=== PATIENT | male | born 1975 | race Caucasian/White ===

== ENCOUNTER 2022-01-22 14:29 | Emergency (ER) | payer MEDICARE, MEDICAID ==
[2022-01-22] MEDS ORDERED: Dexamethasone 4 MG Tab PO ONE (15:29)
[2022-01-22] MEDS ORDERED: Azithromycin 500 MG Tab PO ONE (15:29)
[2022-01-22 15:35] LABS: ESTIMATED GFR 75 mL/min (>60)
[2022-01-22] MEDS ORDERED: Iopamidol 755 Mg/ML 100 ML Bottle IV ONE (17:41)
[2022-01-22] MEDS ORDERED: Piperacillin/Tazobactam 4.5 GM in Sodium Chloride 0.9% 100 ML IV STA (19:04)
[2022-01-22] MEDS ORDERED: metroNIDAZOLE/Normal Saline 500 MG in Premix Bag 1 BAG IV ONE (19:09)
== END 2022-01-22 20:13 | disposition home or self-care (01) ==
LOC: FB.ED 14:29
DX: U07.1 COVID-19 (principal); K57.32 Diverticulitis of large intestine without perforation or abscess without bleeding; R74.01 Elevation of levels of liver transaminase levels; D69.6 Thrombocytopenia, unspecified; Z88.1 Allergy status to other antibiotic agents; Z79.899 Other long term (current) drug therapy
CPT/HCPCS: 36415; 71046; 74177; 80053; 84484; 85025; 85379; 86140; 96365; 99284; A9270; J2543; J8540; Q9967

== ENCOUNTER 2023-04-12 22:47 | Emergency (ER) | payer MEDICARE, MEDICAID ==
[2023-04-12 23:31] VITALS: BP 127/73; PULSE 76
== END 2023-04-12 23:12 | disposition home or self-care (01) ==
LOC: FB.ED 22:47
DX: U07.1 COVID-19 (principal); J44.9 Chronic obstructive pulmonary disease, unspecified; I10 Essential (primary) hypertension; Z88.1 Allergy status to other antibiotic agents
CPT/HCPCS: 99283

== ENCOUNTER 2023-04-27 07:28 | Day surgery (SDC) | payer MEDICARE, MEDICAID ==
[2023-04-27] MEDS ORDERED: Lidocaine 2% 5 ML SDV IV ONE (07:29)
[2023-04-27] MEDS ORDERED: Propofol 200 MG/20 ML SDV IV ONE (07:29)
[2023-04-27] MEDS ORDERED: Sodium Chloride 0.9% 10 ML Syringe FLUSH PRN (07:30)
[2023-04-27] MEDS ORDERED: Lactated Ringers 1,000 ML IV SCH (07:30)
[2023-04-27] MEDS ORDERED: Simethicone Drops 40 MG/0.6 ML 30 ML Bottle PO ONE (08:42)
== END 2023-04-27 10:25 | disposition home or self-care (01) ==
LOC: FB.SDS 07:28
PROVIDERS: ATTEND Surgery
DX: D12.6 Benign neoplasm of colon, unspecified (principal); Q43.8 Other specified congenital malformations of intestine; J44.9 Chronic obstructive pulmonary disease, unspecified; R63.0 Anorexia; F32.A Depression, unspecified; Z79.899 Other long term (current) drug therapy
CPT/HCPCS: 00811; 88305; A9270-GY; J2704; J7120

== ENCOUNTER 2024-01-25 07:15 | Day surgery (SDC) | payer MEDICARE, MEDICAID ==
[~2024-01-25 07:15] MED LIST: Sodium Chloride 0.9% 10 ML Syringe FLUSH PRN
[2024-01-25] MEDS ORDERED: Lidocaine 2% 100 MG/5 ML Syringe IVPUSH ONE (07:16)
[2024-01-25] MEDS ORDERED: Midazolam 1 MG/ML 2 ML SDV IV ONE (07:16)
[2024-01-25] MEDS ORDERED: Propofol 200 MG/20 ML SDV IV ONE (07:16)
[2024-01-25] MEDS: Lactated Ringers 1,000 ML IV SCH (08:22)
== END 2024-01-25 10:10 | disposition home health service (06) ==
LOC: FB.SDS 07:15
PROVIDERS: ATTEND Surgery
DX: K21.00 Gastro-esophageal reflux disease with esophagitis, without bleeding (principal); K29.50 Unspecified chronic gastritis without bleeding; K29.80 Duodenitis without bleeding; K22.89 Other specified disease of esophagus; K44.9 Diaphragmatic hernia without obstruction or gangrene; K31.89 Other diseases of stomach and duodenum; I10 Essential (primary) hypertension; F32.A Depression, unspecified; J44.89 Other specified chronic obstructive pulmonary disease; Z79.899 Other long term (current) drug therapy; Z88.8 Allergy status to other drugs, medicaments and biological substances
CPT/HCPCS: 00731; 88305; 88312; 88342; J2250; J2704; J7120

== ENCOUNTER 2025-02-05 07:05 | Day surgery (SDC) | payer MEDICARE, MEDICAID ==
[2025-02-05] MEDS ORDERED: Propofol 200 MG/20 ML SDV IV ONE (07:06)
[2025-02-05] MEDS ORDERED: Sodium Chloride 0.9% 10 ML Syringe FLUSH PRN (07:45)
[2025-02-05] MEDS: Lactated Ringers 1,000 ML IV SCH (07:45)
[2025-02-07 20:36] LABS: ADENOVIRUS 40/41 PCR Not Detected; ASTROVIRUS PCR Not Detected; CRYPTOSPORIDIUM PCR Not Detected; CYCLOSPORA CAYETANENSIS PCR Not Detected; ENTAMOEBA HISTOLYTICA PCR Not Detected; ENTEROAGGREGATIVE E. COLI PCR Not Detected; ENTEROPATHOGENIC E. COLI PCR Not Detected; ENTEROTOXIGENIC E. COLI PCR Not Detected; GIARDIA LAMBLIA PCR Not Detected; NOROVIRUS GI/GII PCR Not Detected; PLESIOMONAS SHIGELLOIDES PCR Not Detected; ROTAVIRUS A PCR Not Detected; SALMONELLA PCR Not Detected; SAPOVIRUS PCR Not Detected; SHIG/ENTEROINVASIVE E COLI PCR Not Detected; SHIGA TOXIN-PRODUC E. COLI PCR Not Detected; VIBRIO CHOLERAE PCR Not Detected; VIBRIO PCR Not Detected; YERSINIA ENTEROCOLITICA PCR Not Detected
[2025-02-08 01:22] LABS: LACTOFERRIN,FECAL BY ELISA Positive
== END 2025-02-05 09:50 | disposition home or self-care (01) ==
LOC: FB.SDS 07:05
PROVIDERS: ATTEND Surgery
DX: D12.8 Benign neoplasm of rectum (principal); K62.5 Hemorrhage of anus and rectum; K57.30 Diverticulosis of large intestine without perforation or abscess without bleeding; I10 Essential (primary) hypertension; Z88.8 Allergy status to other drugs, medicaments and biological substances; Z79.899 Other long term (current) drug therapy; Z86.0101 Personal history of adenomatous and serrated colon polyps
CPT/HCPCS: 00811; 45385; 83630; 87507; 88305; A9270; J2003; J2704; J7120